=== PATIENT | female | born 1975 ===

== ENCOUNTER → 2022-10-04 09:20 | Outpatient (BNVA) | payer MEDICAID, SELFPAY | PROVIDERS: Visit Provider Obstetrics & Gynecology | DX: Z12.4 Encounter for screening for malignant neoplasm of cervix (principal) | CPT/HCPCS: 87624 ==

== ENCOUNTER → 2022-10-25 08:45 | Outpatient (BNVA) | payer MEDICAID, SELFPAY | PROVIDERS: Visit Provider Obstetrics & Gynecology | DX: Z30.431 Encounter for routine checking of intrauterine contraceptive device (principal) | CPT/HCPCS: 76830 ==

== ENCOUNTER 2022-12-23 07:19 | Day surgery (SDC) | payer MEDICAID, SELFPAY ==
--- NOTE | 2022-12-22 20:25 | W.PM.OPSFHP ---
Same Day Surgery H&P Indication for Procedure/HPI DATE OF PROCEDURE: December 22, 2022 CHIEF COMPLAINT/INDICATIONFOR SURGICAL PROCEDURE: intrauterine device with lost string PREOP DIAGNOSIS: retained intrauterine device PLANNED PROCEDURE: Operation Date: 12/23/22 09:05 Proposed Procedures p Hysteroscopy with Intrauterine device removal [id number],T83.32XA(Not Applicable) - Chris Jhaveri MD s Removal Of Interuterine Device(Not Applicable) - Chris Jhaveri MD 47 y.o. A3 Has intrauterine device in place x 3 years Has light bleeding Seen here October 04, 2022 for IUD removal IUD string not visualized Pelvic sono done October 25, 2022 showed IUD in uterus Now scheduled for hysteroscopic removal of intrauterine device PMHx: none PSHx: c-s x one Meds: none Medications/Allergies* Home Medications Medication Instructions Recorded Confirmed Type No Known Home Medications 12/22/22 12/22/22 History Allergies/Adverse Reactions Allergy/AdvReac Type Severity Reaction Status Date / Time No Known Allergies Allergy Verified 12/22/22 16:13 Pertinent History/Comorbid Conditions* Social History Additional social history: No known family history Pertinent Exam Findings alert, oriented x 3, clear to auscultation bilaterally and regular rate & rhythm Recommendations Surgery/Procedure today Other Plans: hysteroscopic removal of intrauterine device December 23, 2022 Coding Level of Care Code Acute Code for Chg Fwd Diagnoses Time Spent (min) 20
[2022-12-23] VITALS (8 sets, daily range): BP systolic 129–147; BP diastolic 86–98; PULSE 69–83; RESP 14–18; TEMP 36.2–36.9; O2SAT 98–100; BMI 32.6
[2022-12-23 07:35] LABS: OR HCG Qualitative Urine Negative (Negative)
[2022-12-23] MEDS: sodium chloride 0.9% 1,000 ML 30 ML IV (07:54)
--- NOTE | 2022-12-23 08:01 | ANES.PREANE2 ---
Pre-Anesthetic Assessment Height/Weight: Height 1.73 m Weight 97.522 kg Temp Pulse Resp BP Pulse Ox O2 Del Method 98.4 F 69 18 142/97 100 Room Air 12/23/22 07:38 12/23/22 07:38 12/23/22 07:38 12/23/22 07:38 12/23/22 07:38 12/23/22 07:38 Preop Diagnosis: retained intrauterine device Operation Date: 12/23/22 09:05 Proposed Procedures p Hysteroscopy with Intrauterine device removal [id number],T83.32XA(Not Applicable) - Chris Jhaveri MD s Removal Of Interuterine Device(Not Applicable) - Chris Jhaveri MD Was Beta Mickey taken within 24 hours: N/A Was Clonidine taken within 24 hours: N/A Last intake: Intake Last Liquid Date 12/22/22 Last Liquid Time 23:00 Last Solid Date 12/22/22 Last Solid Time 23:00 Social Alcohol and No tobacco Occ alcohol Exam alert, oriented x 3, clear to auscultation bilaterally and regular rate & rhythm Airway Submandibular: within normal limits Cervical ROM: within normal limits Mallampati: Class II Dentition: caps Comments: Comments: Gold caps History/ROS No significant history except as noted and No significant complaints Anesthetic Plan ASA status: 1 Anesthesia: General Risk of > 500 ml blood loss (7ml/kg in children): No Medications/Allergies Home Medications Medication Instructions Recorded Confirmed Last Taken Type No Known Home Medications 12/22/22 12/22/22 Unknown History Allergies Allergy/AdvReac Type Severity Reaction Status Date / Time No Known Allergies Allergy Verified 12/23/22 07:37 Current Medications Generic Name Dose Route Start Last Admin Trade Name Freq PRN Reason Stop Dose Admin Sodium Chloride 1,000 mls @ 30 mls/hr 12/23/22 07:30 12/23/22 07:54 Sodium Chloride 0.9% IV 12/24/22 07:29 30 mls/hr .Q24H JESSICA Administration PFSH Anesthesia Social History (Updated 10/04/22 @ 09:26 by Ernst Vera) Additional social history: No known family history Female Reproductive History Date of last menstrual period: 12/17/22 Data Anesthesia Cardiac Studies: No Data to Display
[2022-12-23] MEDS: midazolam 1 mg/mL INJ 2 mL 2 MG IVP (08:02)
--- NOTE | 2022-12-23 08:39 | W.PM.OPSUD ---
Surgery/Procedure H&P Update DATE OF PROCEDURE: December 23, 2022 DATE H&P PERFORMED: 12/22/22 H&P UPDATE INFORMATION: I have reviewed H&P completed within last 30 days, I have examined patient prior to procedure and No changes to prior documentation PREOP DIAGNOSIS: retained intrauterine device PLANNED PROCEDURE: Operation Date: 12/23/22 09:05 Proposed Procedures p Hysteroscopy with Intrauterine device removal [id number],T83.32XA(Not Applicable) - Chris Jhaveri MD s Removal Of Interuterine Device(Not Applicable) - Chris Jhaveri MD
--- NOTE | 2022-12-23 10:05 | P.OP_ITS ---
Operative Report Date of procedure: December 23, 2022 Pre-op diagnosis: retained intrauterine device Post-op diagnosis: same Post-op findings: intrauterine device, complete and intact, discarded Procedure done: hysteroscopic removal of retained intrauterine device Implants: none Specimens removed/disposition: intrauterine device, complete and intact, discarded Surgeon: Chris Jhaveri MD Anesthesia: MAC Estimated blood loss (mL): 0 Complications: none Condition: stable Disposition: PACU Brief History: 47 y.o. A3 Has intrauterine device in place x 3 years Seen here October 04, 2022 for IUD removal IUD string not visualized Pelvic sono done October 25, 2022 showed IUD in uterus Now scheduled for hysteroscopic removal of intrauterine device Procedure: Informed consent signed. The patient was taken to the operating room and placed supine on the table. Anesthesia was induced. The patient was placed in dorsolithotomy position. The perineum was prepped and draped in the usual sterile fashion. A bivalve speculum was placed in the vagina. The anterior lip of the cervix was grasped with a sharp-toothed tenaculum. The cervix was serially dilated with Hegar di lators. The uterus was sounded to 8 cm. A hysteroscope was introduced into the endometrial cavity. The intrauterine device was visualized. A grasper was introduced via the hysteroscope and the intrauterine device was removed complete and intact. The intrauterine device was then discarded. Repeat hysteroscopy showed an intact endometrial cavity. All instruments were then removed from the endometrial cavity, cervix and vagina. No bleeding was seen. The patient was then placed supine, awakened, and taken to the recovery room. Complications: none EBL: none Sponge and instruments counts correct x two
--- NOTE | 2022-12-23 10:51 | ANE.PACU2 ---
Inpatient post-anesthesia follow up: Airway intact: Yes Vital signs: Temperature 97.8 F Pulse Rate 70 Respiratory Rate 16 Blood Pressure 140/89 Pulse Oximetry 99 Oxygen Delivery Me thod Room Air Oxygen Flow Rate Fraction of Inspir ed Oxygen Hydration adequate: Yes Nausea and vomiting: No Pain level: 1 Mental status: Baseline
== END 2022-12-23 11:30 | disposition home or self-care (01) ==
PROVIDERS: Anesthesiology; Visit Provider Obstetrics & Gynecology
PROC: 0UJD8ZZ Inspection of Uterus and Cervix, Via Natural or Artificial Opening Endoscopic (ICD-10-PCS; CPT 58555; principal; 2022-12-23 08:55)
PROC: (CPT 58301; 2022-12-23 08:55)
DX: Z30.432 Encounter for removal of intrauterine contraceptive device (principal)
CPT/HCPCS: 58301; 81025; 84703; J1885; J2250; J2704; J3010; J3490; J7030